=== PATIENT | male | born 1945 | race Caucasian/White ===

== ENCOUNTER 2018-04-21 23:32 | Emergency (ER) | payer SELFPAY ==
[2018-04-21 23:33] VITALS: BP 140/78; PULSE 80; RESP 20; TEMP 37.5; O2SAT 90; BMI 33.3
[2018-04-21 23:57] VITALS: O2SAT 92
[2018-04-22 00:15] LABS: Absolute Lymphocyte Count 0.98 X10^3/ul (0.83-4.51); Basophil# 0.03 X10^3/uL; Basophil% 0.5 % (0-1); Eosinophils% 1.7 % (0-5); Hematocrit 37.6 % (40-54); Hemoglobin 12.9 g/dl (13.0-16.5); Lymphocyte # 0.98 X10^3/ul (4.0); Lymphocyte % 16.6 % (19-41); Mean Corp Hgb Conc 34.3 g/gl (32-36); Mean Corpuscular Hgb 31.9 pg (27.0-32.0); Mean Corpuscular Volume 92.8 fL (80-94); Mean Platelet Vol. 8.8 fl (6.2-12.0); Monocyte# 0.77 X10^3/uL; Monocyte% 13.1 % (0-10); Neutrophil % 67.9 % (47-70); Platelet Count 180 K/mm3 (150-450); RBC Distribution Width CV 13.2 % (11.6-14.6); RBC Distribution Width SD 43.7 fl (35.1-43.9); Red Blood Count 4.05 M/mm3 (4.6-6.2); White Blood Count 5.9 K/mm3 (4.4-11.0)
[2018-04-22 00:17] LABS: POSITIVE COUNT NO; POSITIVE DIFFERENTIAL NO; POSITIVE MORPHOLOGY NO
--- NOTE | 2018-04-22 00:20 | RAD_ITS ---
STUDY: X-RAY CHEST REASON FOR EXAM: Male, 73 years old. Altered consciousness TECHNIQUE: Single frontal view of the chest. COMPARISON: None. FINDINGS: No pneumothorax. No pleural effusion. Pulmonary vascular congestion. Basilar atelectasis. Question left upper lung zone nodularity. Cardiomegaly. Calcified tortuous aorta. There are diffuse degenerative changes of the visualized thoracic spine. Normal visualized ribs, clavicles, and shoulders. There is no demonstrated abnormality of the visualized soft tissue structures of the upper abdomen. RAD/Chest 1 View IMPRESSION: Cardiomegaly. Pulmonary vascular congestion. Question left upper lung zone nodularity versus summation of shadows. Recommend dedicated PA and lateral radiograph the chest when patient's condition permits. Alternatively CT scan of the chest can be performed to further evaluate. Electronically Signed: Yeyo Shields, at 1:19 EST Tel , Service support ,
[2018-04-22 00:35] LABS: ALB/GLOB Ratio 0.9 RATIO (0.9-2.4); AST(SGOT) 22 U/L (15-37); Alanine Aminotransfer ALT/SGPT 32 U/L (16-61); Albumin, Serum 3.2 g/dL (3.2-5.0); Alkaline Phosphatase 76 U/L (45-117); Anion Gap 9 (5-15); BUN 9 mg/dL (7-18); BUN/Creat Ratio 14.1 RATIO (10-20); Chloride 103 mmol/L (98-107); Creatinine, Serum 0.64 mg/dL (0.70-1.30); EST Glomerular Filtration Rate 131 mL/min (>60); Est Glom Filt Rate - Afr Amer 158 mL/min (>60); Estimated Creatinine Clearance 72.21 ml/min; Globulin 3.5 g/dL (2.2-4.2); Glucose 171 mg/dL (74-106); Potassium 3.4 mmol/L (3.5-5.1); Protein, Total 6.7 g/dL (6.4-8.2); Sodium Level 136 mmol/L (136-145)
--- NOTE | 2018-04-22 00:52 | PCM.HP.STD ---
History of Present Illness The patient is a 73 year old M [] Past Medical History Past Medical History (Chronic Problems): Chronic Problems history of stent (Chronic) CAD (coronary artery disease) (Chronic) Allergies No Known Allergies Allergy (Verified 04/21/18 23:36) Home Medications: Ambulatory Orders Medication Instructions Recorded Citalopram [Celexa] 20 mg PO BID 04/21/18 Donepezil HCl 10 mg PO BID 04/21/18 Glimepiride [Amaryl] 1 mg PO DAILY 04/21/18 Lorazepam [Ativan] 0.5 mg PO 4X/DAY 04/21/18 Metformin HCl 500 mg PO TID 04/21/18 Surgical History: cholecystectomy Smoking Status: Never smoker - Physical Exam Vital Signs Temp Pulse Resp BP Pulse Ox 99.5 F H 80 20 H 140/78 H 92 04/21/18 23:33 04/21/18 23:33 04/21/18 23:33 04/21/18 23:33 04/21/18 23:57 Oxygen Flow Rate (L/min) 2 Oxygen Delivery Method Room Air Weight: 111.3 kg Body Mass Index (BMI) 33.3 Microbiology Past 72 Hours 04/22/18 00:09 Influenza Types A,B Direct FA (KATHI) - Final Mucosa - Nose Laboratory Tests Past 24 Hrs 04/22/18 04/22/18 00:03 00:03 WBC 5.9 RBC 4.05 L Hgb 12.9 L Hct 37.6 L MCV 92.8 MCH 31.9 MCHC 34.3 RDW 13.2 RDW Differential 43.7 Plt Count 180 MPV 8.8 Immature Gran % (Auto) 0.200 Neut % (Auto) 67.9 Lymph % (Auto) 16.6 L [place] % (Auto) 13.1 H Eos % (Auto) 1.7 Baso % (Auto) 0.5 Absolute Neuts (auto) 4.0 Absolute Lymphs (auto) 0.98 Total Counted Not Reportable Sodium 136 Potassium 3.4 L Chloride 103 Carbon Dioxide 24.0 Anion Gap 9 BUN 9 Creatinine 0.64 L Estim Creat Clear Calc 72.21 Est GFR (MDRD) Af Amer 158 Est GFR (MDRD) Non-Af 131 BUN/Creatinine Ratio 14.1 Glucose 171 H Calcium 8.0 L Total Bilirubin 1.20 H AST 22 ALT 32 Alkaline Phosphatase 76 Troponin I < 0.015 Total Protein 6.7 Albumin 3.2 Globulin 3.5 Albumin/Globulin Ratio 0.9
--- NOTE | 2018-04-22 01:03 | ED.DCSUM_ITS ---
- ER Visit Summary Date of Service: 04/22/18 Chief Complaint: []. Mental status and confusion History of Present Illness: The patient is a 73 M family stated he has had increased confusion for the last 3 weeks. It got really bad over the last 2 days. He is been unable to ambulate by himself. He was not looking right direction 2 days ago and had a mechanical fall. They stated he had no injury. He stumbled forehead. I do not think he hit his head. He does take Ativan but he has been out since yesterday. Today he is been more confused. He has chronic dementia for the last 2 years. He has been declining. Physical Examination: [] Vital signs reviewed General: Well-nourished well-developed Head: Normocephalic atraumatic Eyes: Pupils equal round and reactive to light extraocular movements intact ENT: TMs clear no hemotympanum no trauma Neck: Nontender full range of motion Cardiovascular: Regular rate rhythm 2/6 systolic murmur normal S1-S2 Respiratory: No distress clear to auscultation bilaterally chest nontender Abdomen: Soft nontender nondistended normal bowel sounds no masses Back: Nontender no CVA tenderness Extremities: 2+ lower extremity edema mid munoz down bilateral. Skin: Normal color no trauma Neuro. Patient appears sleeping. He awakens and can answer some questions yes or no but easily falls back asleep. Cannot have any significant conversation. Test Results: [] Emergency Department Course and Treatment: [] CT head shows a large right-sided intracranial hemorrhage with shift of the brain contents to the opposite left side. Questionable herniation noted. Chest x-ray shows chronic changes. CBC is normal except hemoglobin 12.9. Chemistries normal except potassium 3.4. Glucose 171. Troponin negative. Influenza negative. Patient given IV fluids. Discussed with the family. Due to the fact that he has chronic dementia and a very large intracranial hemorrhage they would like the patient to be made comfortable and hospice at this time. I feel this is reasonable in the right thing to do. This was discussed with hospice as well as the hospitalist. Treatment Plan: [] Disposition: [] Impression: [] Right sided hematoma with brain shift Severe altered mental status secondary to intracranial hemorrhage Total critical care time 74 minutes This note was generated with Review Trackersation software. It may contain incorrect words, spelling, and punctuation that were not noted in review of the chart prior to signing ED Disposition - Plan for ED Patient: Referrals: Janes Conteh, [employer] [Primary Care Provider] -
[2018-04-22 01:20] VITALS: BP 129/80; PULSE 77; RESP 14; O2SAT 93
[2018-04-22 02:43] VITALS: BP 131/72; PULSE 76; RESP 18; O2SAT 95
[2018-04-22 03:10] VITALS: RESP 18
--- NOTE | 2018-04-22 23:48 | CT_ITS ---
We are attempting to reach [facility] to discuss findings. An addendum with communication details will be sent when the communication is complete. STUDY: CT BRAIN WITHOUT CONTRAST REASON FOR EXAM: Male, 73 years old. , Trauma RADIATION DOSAGE (If Supplied By Facility): CTDIvol = ( 44.99 ) mGy, DLP = ( 846.73 ) mGycm TECHNIQUE: Transaxial CT imaging of the brain was performed without administration of intravenous contrast material. Individualized dose optimization techniques were used for this CT. COMPARISON: None. FINDINGS: Normal soft tissue structures. Normal calvarium. There is mild cerebral atrophy with widening of the extra-axial spaces and ventricular dilatation. There are areas of decreased attenuation within the white matter tracts of the supratentorial brain, consistent with microvascular disease changes. There is a high left frontoparietal 5 mm extra-axial hyperattenuation collection. There is a 3 cm maximum thickness right extra-axial collection involving the entire right cerebral hemisphere greatest within the frontal lobe region. There is a hyperdense component as well as a more low-attenuation component. Additionally there is subdural layering along the right tentorium. The large right extra-axial collection causes mass effect and effacement of the right cerebral sulci. There is 1.4 cm of [id number] midline shift. There is partial basilar of the basal cisterns. There is no acute territorial infarct identified. Paranasal sinus disease. Carotid and vertebral artery calcifications. CT/Brain/Head without Contrast IMPRESSION: There is a large extra-axial hemorrhage involving the majority of the right cerebral hemisphere with a maximum thickness of 3 cm. This causes mass effect with 1.4 cm of [id number] midline shift and partial effacement of the basal cisterns compatible with herniation. Also slight dilatation of the temporal horn of the left lateral ventricle may be related to component of entrapment. Neurosurgical emergency consultation is recommended. There is a small 5 mm extra-axial thickness high left frontoparietal subdural. There also small amount of subdural which layers upon the right tentorium. No acute territorial infarct identified. Chronic involutional and white matter changes. Electronically Signed: Yeyo Shields, at 0:50 EST Tel , Service support ,
== END 2018-04-22 03:42 | disposition short-term general hospital (02) ==
PROVIDERS: Emergency Provider Emergency Medicine; Family Provider Nurse Practitioner Family; PCP Nurse Practitioner Family
DX: I62.01 Nontraumatic acute subdural hemorrhage (principal); F03.90 Unspecified dementia, unspecified severity, without behavioral disturbance, psychotic disturbance, mood disturbance, and anxiety; I25.10 Atherosclerotic heart disease of native coronary artery without angina pectoris; E11.9 Type 2 diabetes mellitus without complications; E66.9 Obesity, unspecified; Z68.33 Body mass index [BMI] 33.0-33.9, adult; Z79.84 Long term (current) use of oral hypoglycemic drugs; Z79.899 Other long term (current) drug therapy; Z66 Do not resuscitate
CPT/HCPCS: 70450; 71045; 80053; 84484; 85025; 87804; 96360; 99285; J7030; J7040